=== PATIENT | male | born 1955 | race American Indian/Alaskan Native ===

== ENCOUNTER 2018-05-13 06:07 | Inpatient (IN) | payer BC ==
[2018-05-13 06:08] VITALS: BMI 34.7
--- NOTE | 2018-05-13 06:30 | ED PDOC ---
Arrival/HPI - General Chief Complaint: Lower Extremity Problem/Injury Time Seen by Provider: 05/13/18 06:09 Historian: Patient - History of Present Illness Narrative History of Present Illness (Text): 05/13/18 06:27 62 year old male, with history of recent knee replacement surgery and DVT in knee, presents for consult from [facility]. Patient is here for evaluatin by Dr. Santillan. Patient states hes been having fevers since the surgery, but denies any other complaints. Patient has not eaten since midnight and has drank apple juice and water this morning. Patient denies any headache, dizziness, chest pain, shortness of breath, dyspnea on exertion, cough, abdominal pain, nausea, vomiting, diarrhea, back pain, neck pain, or any other complaint.. 05/13/18 07:16 Time/Duration: Prior to Arrival Context: Home Past Medical History - Provider Review Nursing Documentation Reviewed: Yes - Infectious Disease Hx of Infectious Diseases: None - Cardiac Hx Cardiac Disorders: Yes Hx Angina: Yes - Pulmonary Hx Respiratory Disorders: Yes Hx Asthma: Yes Hx Chronic Obstructive Pulmonary Disease (COPD): Yes - Neurological Hx Neurological Disorder: Yes Hx Dizziness: Yes (sometimes ) - HEENT Hx HEENT Disorder: Yes (deviated septum repair) - Renal Hx Renal Disorder: No - Endocrine/Metabolic Hx Endocrine Disorders: No - Hematological/Oncological Hx Blood Disorders: Yes Hx Shingles: Yes - Integumentary Hx Dermatological Disorder: No - Musculoskeletal/Rheumatological Hx Degenerative Joint Disease: Yes Hx Falls: No Hx Osteoarthritis: Yes - Gastrointestinal Hx Gastrointestinal Disorders: No - Genitourinary/Gynecological Hx Urinary Tract Infection: Yes - Psychiatric Hx Psychophysiologic Disorder: No Hx Substance Use: No - Surgical History Hx Arthroscopy: Yes (left shoulder torn rotator cuff repair) Hx Joint Replacement: Yes Other/Comment: deviated septal repair - Anesthesia Hx Anesthesia: Yes Hx Anesthesia Reactions: No Hx Malignant Hyperthermia: No Family/Social History - Physician Review Nursing Documentation Reviewed: Yes Family/Social History: No Known Family HX Smoking Status: Never Smoked Hx Alcohol Use: No Hx Substance Use: No Allergies/Home Meds Allergies/Adverse Reactions: Allergies Penicillins Allergy (Intermediate, Verified 05/10/18 16:33) RASH shellfish derived Allergy (Intermediate, Verified 05/10/18 16:33) RASH shrimp Allergy (Intermediate, Verified 05/10/18 16:33) RASH Review of Systems - Physician Review All systems were reviewed & negative as marked: Yes - Review of Systems Constitutional: Fevers Respiratory: absent: SOB, Cough Cardiovascular: absent: Chest Pain Gastrointestinal: absent: Abdominal Pain, Diarrhea, Nausea, Vomiting Musculoskeletal: absent: Back Pain, Neck Pain Neurological: absent: Headache, Dizziness Physical Exam Vital Signs Reviewed: Yes Vital Signs Temp Pulse Resp BP Pulse Ox 05/13/18 06:20 98.1 F 88 18 122/73 99 Temperature: Afebrile Blood Pressure: Normal Pulse: Regular Respiratory Rate: Normal Appearance: Positive for: Well-Appearing, Non-Toxic, Comfortable Pain Distress: None Mental Status: Positive for: Alert and Oriented X 3 - Systems Exam Head: Present: Atraumatic, Normocephalic Pupils: Present: PERRL Extroacular Muscles: Present: EOMI Conjunctiva: Present: Normal Mouth: Present: Moist Mucous Membranes Neck: Present: Normal Range of Motion Respiratory/Chest: Present: Clear to Auscultation, Good Air Exchange. No: Respiratory Distress, Accessory Muscle Use Cardiovascular: Present: Regular Rate and Rhythm, Normal S1, S2. No: Murmurs Abdomen: No: Tenderness, Distention, Peritoneal Signs Back: Present: Normal Inspection Upper Extremity: Present: Normal Inspection. No: Cyanosis, Edema Lower Extremity: Present: Normal Inspection, Capillary Refill < 2 s, Other (LLE: w/roderick wrap which is C/D/I, in brace, DP/PT pulses 2+, moves toes freely, sensation intact, skin warm and dry). No: Edema Neurological: Present: GCS=15, CN II-XII Intact, Speech Normal Skin: Present: Warm, Dry, Normal Color. No: Rashes Psychiatric: Present: Alert, Oriented x 3, Normal Insight, Normal Concentration Medical Decision Making ED Course and Treatment: 05/13/18 CBC, CMP and T&S performed at [facility] at 3:30 am today. 06:43 Case d/w Dr. Santillan who requests T&S, left knee xray and patient to be transferred to [facility] for evaluation. - EKG Interpretation EKG Interpretation (Text): 05/13/18 07:39 EKG: Ordered, reviewed, and independently interpreted the EKG. Rate : 81 BPM Rhythm : NSR Interpretation : Normal [place] and QRS intervals, prolonged QRS, left axis deviation, Right Bundle branch block, non specific T-wave changes. Comparison : Unchanged for 05/16/2017 Interpreted by ED Physician: Yes - Scribe Statement The provider has reviewed the documentation as recorded by the Scribe Keron Mathias Provider Scribe Attestation: All medical record entries made by the Scribe were at my direction and personally dictated by me. I have reviewed the chart and agree that the record accurately reflects my personal performance of the history, physical exam, medical decision making, and the department course for this patient. I have also personally directed, reviewed, and agree with the discharge instructions and disposition. Disposition/Present on Arrival - Present on Arrival Any Indicators Present on Arrival: Yes History of DVT/PE: Yes History of Uncontrolled Diabetes: No Urinary Catheter: No History of Decub. Ulcer: No History Surgical Site Infection Following: None - Disposition Have Diagnosis and Disposition been Completed?: Yes Diagnosis: Status post left knee replacement Disposition: HOSPITALIZED Disposition Time: 06:50 Patient Plan: Admission Patient Problems: Current Active Problems Problem Status Onset Status post left knee replacement Acute Condition: STABLE
[2018-05-13] MEDS ORDERED: Bupivacaine Liposomal Inj 20 ml ONE (07:48)
[2018-05-13] MEDS ORDERED: Vancomycin 1 g Inj ONE ×2 (07:48→07:49)
[2018-05-13] MEDS ORDERED: Sodium Chloride 0.9% 0 ML IV ONE (07:48)
[2018-05-13] MEDS ORDERED: Propofol 10 mg/ml Inj (20 ML) ONE (08:05)
[2018-05-13] MEDS ORDERED: Succinylcholine 200 mg/10 ml Inj IV ONE (08:05)
[2018-05-13] MEDS ORDERED: Aztreonam 1 Gm in NS 100mL 100 ML IVPB STA (08:27)
[2018-05-13 09:06] LABS: FLUID TYPE SYNOVIAL FLUID
[2018-05-13] MEDS ORDERED: Albuterol-Ipratrop 3 mg / 0.5 (3 ml) UD INH PRN (09:50)
--- NOTE | 2018-05-13 09:50 | PCM.SURG1 ---
Surgeon's Initial Post Op Note - Surgeon's Notes Surgeon: Mercedes Jaquez MD Drilling Machine Operator: Lawrecne Leon PA-C Type of Anesthesia: General Endo Anesthesia Administered By: Dr. Lemus Pre-Operative Diagnosis: left knee hematoma s/p L TKA Operative Findings: see full note Post-Operative Diagnosis: same Operation Performed: I&D left knee hematoma s/p L TKA Specimen/Specimens Removed: left knee fluid Estimated Blood Loss: EBL {In ML}: 25 Blood Products Given: N/A Drains Used: Wound Vac Post-Op Condition: Fair Date of Surgery/Procedure: 05/13/18 Time of Surgery/Procedure: 09:49
[2018-05-13] MEDS ORDERED: Magnesium Hydroxide Susp 30 ml UD PO PRN (09:51)
[2018-05-13] MEDS ORDERED: HYDROmorphone 0.5 mg/0.5 ml ISec IM STA (09:55)
[2018-05-13] MEDS ORDERED: HYDROmorphone 0.5 mg/0.5 ml ISec IVP ONE (09:55)
[2018-05-13] MEDS ORDERED: HYDROmorphone 0.5 mg/0.5 ml ISec ONE (09:56)
[2018-05-13] MEDS ORDERED: Sodium Chloride 0.9% 1,000 ML IV SCH (10:00)
[2018-05-13] MEDS ORDERED: Non Formulary Medication (Fluticasone/Vilanterol 100/25 [Breo Ellipta 100-25 Mcg Inh] 1 PU INH SCH (10:00)
[2018-05-13 10:02] LABS: SF GROSS APPEARANCE BLOODY (CLEAR); SYNOVIAL FLUID COMMENT RED
[2018-05-13] MEDS ORDERED: Lactated Ringer's 1,000 ML IV SCH (10:30)
[2018-05-13] MEDS ORDERED: Vancomycin 500 mg Inj IVPB SCH (11:00)
--- NOTE | 2018-05-13 11:46 | RAD ---
Date of service: 05/13/2018 PROCEDURE: Left Knee Radiographs. HISTORY: Postoperative pain. COMPARISON: None. FINDINGS: BONES: Satisfactory postoperative appearance of tibial and distal femoral components of the left TKA. JOINTS: Normal. No osteoarthritis. JOINT EFFUSION: None. OTHER FINDINGS: Surgical drain identified in the soft tissues. IMPRESSION: Satisfactory postoperative status.
[2018-05-13] MEDS: Aztreonam 1 Gm in NS 100mL 100 ML IVPB SCH ×2 (13:35→21:10)
[2018-05-13] MEDS: Multivitamin With Minerals Tab PO SCH (13:37)
[2018-05-13] MEDS: Ergocalciferol 50,000 Intl Units Cap PO SCH (13:37)
[2018-05-13] MEDS: Pantoprazole 40 mg EC Tab PO SCH (13:38)
--- NOTE | 2018-05-13 15:03 | CP.PCM.HP ---
<Manuel Redding - Last Filed: 05/13/18 15:22> History of Present Illness - History of Present Illness History of Present Illness: H&P for Hospitalist service 62 M with past medical history of rheumatic fever, CAD, asthma presenting s/p left knee replacement complicated by left leg DVT and hematoma of left knee [place] [facility] [place] of hematoma and management of DVT on eliquis. Patient denies pain, fevers, chills, nausea, vomiting, diarrhea, chest pain, shortness of breath, headache. PMD: Dr. Low Surgical Hx: Left knee arthroplasty Family Hx: DVT in sister, and paternal aunt Social Hx: Denies tobacco, alcohol , drug use Allergies: Penicillin (rash), shellfish Present on Admission - Present on Admission Any Indicators Present on Admission: No Review of Systems - Constitutional Constitutional: absent: Chills, Headache - EENT Eyes: absent: Change in Vision - Cardiovascular Cardiovascular: absent: Chest Pain, Dyspnea - Respiratory Respiratory: absent: Cough - Gastrointestinal Gastrointestinal: absent: Diarrhea, Nausea, Vomiting - Genitourinary Genitourinary: absent: Dysuria - Musculoskeletal Musculoskeletal: absent: Joint Swelling, Muscle Cramps, Muscle Weakness, Numbness, Stiffness, Tingling - Integumentary Integumentary: absent: Dry Skin, Skin Pain - Neurological Neurological: absent: Dizziness, Numbness - Psychiatric Psychiatric: absent: Anxiety - Endocrine Endocrine: absent: Fatigue - Hematologic/Lymphatic Hematologic: absent: Easy Bleeding, Easy Bruising Past Patient History - Infectious Disease Hx of Infectious Diseases: None - Past Medical History & Family History Past Medical History?: Yes - Past Social History Smoking Status: Never Smoked - CARDIAC Hx Cardiac Disorders: Yes Hx Angina: Yes - PULMONARY Hx Asthma: Yes Hx Chronic Obstructive Pulmonary Disease (COPD): Yes - NEUROLOGICAL Hx Neurological Disorder: Yes Hx Dizziness: Yes (sometimes ) - HEENT Hx HEENT Problems: Yes (deviated septum repair) - RENAL Hx Chronic Kidney Disease: No - ENDOCRINE/METABOLIC Hx Endocrine Disorders: No - HEMATOLOGICAL/ONCOLOGICAL Hx Blood Disorders: Yes Hx Shingles: Yes - INTEGUMENTARY Hx Dermatological Problems: No - MUSCULOSKELETAL/RHEUMATOLOGICAL Hx Falls: No - GASTROINTESTINAL Hx Gastrointestinal Disorders: No - GENITOURINARY/GYNECOLOGICAL Hx Urinary Tract Infection: Yes - PSYCHIATRIC Hx Psychophysiologic Disorder: No Hx Substance Use: No - SURGICAL HISTORY Hx Surgeries: Yes Hx Orthopedic Surgery: Yes - ANESTHESIA Hx Anesthesia: Yes Hx Anesthesia Reactions: No Hx Malignant Hyperthermia: No Meds Allergies/Adverse Reactions: Allergies Allergy/AdvReac Type Severity Reaction Status Date / Time Penicillins Allergy Intermediate RASH Verified 05/10/18 16:33 shellfish derived Allergy Intermediate RASH Verified 05/10/18 16:33 shrimp Allergy Intermediate RASH Verified 05/10/18 16:33 Physical Exam - Constitutional Appears: Non-toxic - Head Exam Head Exam: ATRAUMATIC, NORMAL INSPECTION, NORMOCEPHALIC - Eye Exam Eye Exam: EOMI, Normal appearance - ENT Exam ENT Exam: Mucous Membranes Moist, Normal Exam - Neck Exam Neck exam: Positive for: Normal Inspection - Respiratory Exam Respiratory Exam: Clear to Auscultation Bilateral, NORMAL BREATHING PATTERN. absent: Rhonchi, Wheezes - Cardiovascular Exam Cardiovascular Exam: REGULAR RHYTHM, +S1, +S2 - GI/Abdominal Exam GI & Abdominal Exam: Normal Bowel Sounds, Soft - Extremities Exam Extremities exam: Positive for: normal inspection - Expanded Lower Extremities Exam Left Lower Leg Exam: absent: full ROM (left lower leg immobilizer placed, would roderick bandage wrap and stabilized) - Back Exam Back exam: NORMAL INSPECTION - Neurological Exam Neurological exam: Alert, CN II-XII Intact, Oriented x3 - Psychiatric Exam Psychiatric exam: Normal Affect, Normal Mood - Skin Skin Exam: Normal Color, Warm Results - Vital Signs Recent Vital Signs: Last Vital Signs Temp 98.1 F 05/13/18 14:00 Pulse 96 H 05/13/18 14:00 Resp 20 05/13/18 14:00 BP 112/79 05/13/18 14:00 Pulse Ox 96 05/13/18 14:00 - Labs Labs: Laboratory Results - last 24 hr 05/13/18 05/13/18 06:50 09:00 Fluid Type Synovial fluid Synovial WBC 6105.0 H Synovial RBC 2792020.0 H Synovial Mononuclear 6.0 H Synov Polymorphonuclear 94.0 H Synovial Fluid Comment Red Blood Type B POSITIVE Antibody Screen Negative BBK History Checked Patient has bt Assessment & Plan - Assessment and Plan (Free Text) Assessment: 62 M with past medical history of rheumatic fever, CAD, asthma presenting s/p left knee replacement complicated by left leg DVT and hematoma of left knee presenting [place] [facility] [place] of hematoma and management of DVT on eliquis. Plan: S/P I&D Left Knee S/P left knee athroplasty -Continue with Aztreonam and Vanc -Dilaudid, oxycodone, lyrica, tylenol for pain -F/U anaerobic culture, body fluid culture, culture fungus, mycobac -PT/OT -Continue with incesitve spirometry Asthma Hx -Continue with duonebs, breo-ellipta, ventolin, singulair Left leg DVT -Eliquis 10 mg BID for 3 more days then 5 mg BID -Hypercoaguable workup: Beta 2 glycoprotein, Phosphatidylserine, Factor V leiden and Anticardiolipin done at other facility; Will also add PT,PTT, protein C and S, antithrombin III, prothombrin, Factor VIII, homocysteine DVT/GI ppx: Eliquis/Protonix <Freddie Evans - Last Filed: 05/13/18 16:35> Results - Vital Signs Recent Vital Signs: Last Vital Signs Temp 98.1 F 05/13/18 14:00 Pulse 96 H 05/13/18 14:00 Resp 20 05/13/18 14:00 BP 112/79 05/13/18 14:00 Pulse Ox 96 05/13/18 14:00 - Labs Labs: Laboratory Results - last 24 hr 05/13/18 05/13/18 06:50 09:00 Fluid Type Synovial fluid Synovial WBC 6105.0 H Synovial RBC 6743999.0 H Synovial Mononuclear 6.0 H Synov Polymorphonuclear 94.0 H Synovial Fluid Comment Red Blood Type B POSITIVE Antibody Screen Negative BBK History Checked Patient has bt Attending/Attestation - Attestation I have personally seen and examined this patient.: Yes I have fully participated in the care of the patient.: Yes I have reviewed all pertinent clinical information: Yes Notes (Text): Patient seen and examined with the residents, agree with above DVT of the LLE, most likely provoked secondary to ortho surgery Has a h/o of "blood clots" in his family - will send for hypercoagulable workup continue with OAC with Eliquis, PT/OT
--- NOTE | 2018-05-13 16:18 | OP ---
PROCEDURE DATE: 05/13/2018 PREOPERATIVE DIAGNOSIS: Left knee hemarthrosis, status post left total knee arthroplasty. POSTOPERATIVE DIAGNOSIS: Left knee hemarthrosis, status post left total knee arthroplasty. PROCEDURE: Left knee evacuation of hematoma and irrigation and debridement. SURGEON: Cyril Jaquez MD. AUTOMATIC GLOVE TURNER AND FORMER: Dr. Jaquez was assisted by Nadia Reddy, physician assistant banquet manager and Jimmy Alejandre, physician assistant banquet manager. Both physician assistants were scrubbed and present throughout the entire case and assisted in manipulating the extremity, retraction and wound closure. ANESTHESIA: General. COMPLICATIONS: None. ESTIMATED BLOOD LOSS: 25 mL. Hematoma removed was approximately 200 mL. COMPLICATIONS: None. INDICATION FOR PROCEDURE: This is a 62-year-old gentleman who approximately 9 days ago underwent a left total knee replacement. Postoperatively, patient developed a deep venous thrombosis and was on therapeutic doses of anticoagulation. Patient subsequently developed a hematoma as well as with difficulty with flexion. Recommendations were for evacuation of the hematoma and irrigation and debridement. The risks, benefits, and alternatives of the procedure were discussed with the patient including the possibility of deep infection and informed consent was obtained. DESCRIPTION OF PROCEDURE: After surgical site was signed and verified in the perioperative holding area, the patient was taken to the operating room and placed supine on the operating room table. After administration of general anesthesia, tourniquet was placed about the left thigh. Care was taken to make sure that all bony prominences and nerves were well padded and protected. Venodyne boot was placed on the nonoperative extremity and the left lower upper extremity was prepped and draped in the usual sterile fashion. At this point, using an 18-gauge needle and 20 mL syringe, the left knee was aspirated and approximately 8 mL of dark blood was aspirated consistent with a hematoma. At this point, the proximal portion of the incision was re-incised and immediately approximately 175 to 200 mL of dark red blood was evacuated. There was no gross purulence. Cultures were taken as well as fluids sent off for cell count. The wound was inspected and tissue all appeared to be healthy and viable. There was no gross purulence appreciated whatsoever. The deep sutures appeared to be intact. The wound was then copiously irrigated intraarticularly through the retinacular incision from the lateral release and the knee joint was flush lavaged with approximately 9 L of antibiotic saline solution. At this point, once the wound had been irrigated, gloves changed and a new drape was placed and 1 g of vancomycin powder was inserted into the wound and the wound was closed using 0 Vicryl, 2-0 Vicryl suture and 3-0 nylon. A RANJITH incisional wound VAC dressing was applied and a Dailey dressing was placed. The patient was awakened from the procedure and taken to the recovery room in stable condition. Cyril Jaquez MD
[2018-05-13] MEDS ORDERED: Aztreonam 1 Gm in NS 100mL 100 ML IVPB SCH (17:00)
[2018-05-13] MEDS: HYDROmorphone 1 mg/ml ISec IVP PRN (18:40)
[2018-05-13] MEDS: Albuterol-Ipratrop 3 mg / 0.5 (3 ml) UD INH SCH ×2 (18:53→19:01)
--- NOTE | 2018-05-13 19:03 | CARD ---
APPROVED REPORT Date of service: 05/13/2018 EKG Measurement Heart [id number] <Conclusion> Normal sinus rhythm Right bundle branch block Abnormal ECG
[2018-05-14] MEDS: Albuterol-Ipratrop 3 mg / 0.5 (3 ml) UD INH SCH ×4 (02:30→19:36)
[2018-05-14] MEDS: oxyCODONE 10 mg Immediate Release Tab PO PRN ×2 (03:40→20:03)
[2018-05-14 06:51] LABS: BASO # 0.07 K/mm3 (0.0-2.0); BASO % 0.6 % (0.0-3.0); EOS # 0.4 (0.0-0.7); EOS % 3.3 % (1.5-5.0); GRAN # 8.44 (1.4-6.5); HEMOGLOBIN 9.1 g/dL (14.0-18.0); LYMPH # 2.6 (1.2-3.4); LYMPH % 20.9 % (22.0-35.0); MEAN CORPUSCULAR HEMOGLOBIN 26.8 pg (25.0-35.0); MEAN CORPUSCULAR HGB CONC 31.5 g/dl (31.0-37.0); MEAN PLATELET VOLUME 8.8 fl (7.0-11.0); MONO % 8.2 % (1.0-6.0); RBC 3.4 10^6/uL (3.5-6.1); RED CELL DISTRIBUTION WIDTH 13.5 % (11.5-14.5); WHITE BLOOD COUNT 12.6 10^3/uL (4.5-11.0)
[2018-05-14 07:04] LABS: ALB/GLOB RATIO 0.9 (1.1-1.8); ALBUMIN 3.3 g/dL (3.0-4.8); ALT/SGPT 90 U/L (7-56); AST/SGOT 74 U/L (17-59); BLOOD UREA NITROGEN 16 mg/dL (7-21); CALCIUM 8.3 mg/dL (8.4-10.5); GFR NON-AFRICAN AMERICAN > 60
[2018-05-14] MEDS: HYDROmorphone 1 mg/ml ISec IVP PRN ×2 (09:43)
[2018-05-14] MEDS: Multivitamin With Minerals Tab PO SCH (09:44)
[2018-05-14] MEDS: Pantoprazole 40 mg EC Tab PO SCH (09:44)
--- NOTE | 2018-05-14 11:19 | CP.PCM.PN ---
<Manuel Redding - Last Filed: 05/14/18 11:20> Subjective - Date & Time of Evaluation Date of Evaluation: 05/14/18 Time of Evaluation: 08:30 - Subjective Subjective: Patient seen and examined at bedside in no acute distress. Patient states he is in no pain, is aware of low grade fever overnight but has not felt febrile or had chills. Appetite is strong. Patient aware with current plan as per ortho and medical teams. Denies chest pain, lower extremity pain, fevers, chills, nausea, vomiting, diarrhea, headache, cough. Physical Exam - Constitutional Appears: Non-toxic - Head Exam Head Exam: ATRAUMATIC, NORMAL INSPECTION, NORMOCEPHALIC - Eye Exam Eye Exam: EOMI, Normal appearance - ENT Exam ENT Exam: Mucous Membranes Moist, Normal Exam - Neck Exam Neck exam: Positive for: Normal Inspection - Respiratory Exam Respiratory Exam: Clear to Auscultation Bilateral, NORMAL BREATHING PATTERN. absent: Rhonchi, Wheezes - Cardiovascular Exam Cardiovascular Exam: REGULAR RHYTHM, +S1, +S2 - GI/Abdominal Exam GI & Abdominal Exam: Normal Bowel Sounds, Soft - Extremities Exam Extremities exam: Positive for: normal inspection - Expanded Lower Extremities Exam Left Lower Leg Exam: absent: full ROM (left lower leg immobilizer placed, would roderick bandage wrap and stabilized) - Back Exam Back exam: NORMAL INSPECTION - Neurological Exam Neurological exam: Alert, CN II-XII Intact, Oriented x3 - Psychiatric Exam Psychiatric exam: Normal Affect, Normal Mood - Skin Skin Exam: Normal Color, Warm Objective - Vital Signs/Intake and Output Vital Signs (last 24 hours): Temp Pulse Resp BP Pulse Ox 98.6 F 84 20 110/71 98 05/14/18 07:00 05/14/18 07:00 05/14/18 07:00 05/14/18 07:00 05/14/18 07:00 Intake and Output: 05/14/18 05/14/18 06:59 18:59 Output Total 525 Balance -525 - Medications Medications: Current Medications Acetaminophen (Tylenol 325mg Tab) 650 mg PO Q6 PRN PRN Reason: Fever =>101 degrees fahrenheit Last Admin: 05/13/18 21:23 Dose: 650 mg Albuterol/Ipratropium (Duoneb 3 Mg/0.5 Mg (3 Ml) Ud) 3 ml INH [id number] [facility] Last Admin: 05/14/18 02:30 Dose: Not Given Apixaban (Eliquis) 10 mg PO BID [facility]; Protocol Stop: 05/20/18 10:01 Last Admin: 05/14/18 09:44 Dose: 10 mg Docusate Sodium (Colace) 100 mg PO BID [facility] Last Admin: 05/14/18 09:44 Dose: 100 mg Ergocalciferol (Drisdol 50,000 Intl Units Cap) 1 cap PO QWK [facility] Last Admin: 05/13/18 13:37 Dose: 1 cap Hydromorphone HCl (Dilaudid) 1 mg IVP Q4H PRN PRN Reason: Pain, severe (8-10) Last Admin: 05/14/18 09:43 Dose: 1 mg Vancomycin HCl 1.25 gm/ Sodium (Chloride) 250 mls @ 166.667 mls/hr IVPB Q12H [facility] Last Admin: 05/14/18 09:50 Dose: 166.667 mls/hr Lactated Ringer's (Lactated Ringer's) 1,000 mls @ 100 mls/hr IV .Q10H [facility] Aztreonam (Azactam 1 Gm) 100 mls @ 100 mls/hr IVPB Q8 [facility]; Protocol Stop: 05/14/18 14:59 Magnesium Hydroxide (Milk Of Magnesia) 30 ml PO HS PRN PRN Reason: Constipation Montelukast Sodium (Singulair) 10 mg PO DAILY [facility] Last Admin: 05/14/18 09:44 Dose: 10 mg Multivitamins/Minerals (Therapeutic-M Tab) 1 tab PO DAILY [facility] Last Admin: 05/14/18 09:44 Dose: 1 tab Non-Formulary Medication (Fluticasone/Vilanterol 100/25 [Breo Ellipta 100-25 Mcg Inh]) 1 puff INH DAILY [facility] Oxycodone HCl (Oxycodone Immediate Release Tab) 10 mg PO Q4H PRN PRN Reason: Pain, moderate (4-7) Last Admin: 05/14/18 03:40 Dose: 10 mg Pantoprazole Sodium (Protonix Ec Tab) 40 mg PO DAILY [facility] Last Admin: 05/14/18 09:44 Dose: 40 mg Pregabalin (Lyrica) 50 mg PO BID [facility] Last Admin: 05/14/18 09:44 Dose: 50 mg Sennosides (Senokot Tab) 17.2 mg PO HS PRN PRN Reason: Constipation - Labs Labs: 05/14/18 06:00 05/14/18 06:00 Assessment and Plan - Assessment and Plan (Free Text) Assessment: 62 M with past medical history of rheumatic fever, CAD, asthma presenting s/p left knee replacement complicated by left leg DVT and hematoma of left knee [place] [facility] [place] and management of DVT on eliquis. Plan: S/P I&D Left Knee S/P left knee athroplasty -Continue with Vancomycin -Dilaudid, oxycodone, lyrica, tylenol for pain -F/U anaerobic culture, body fluid culture, culture fungus, mycobac; results pending -PT/OT -Continue with incesitve spirometry -Patient spiked temp 100.6 overnight, but likely due to recent procedure. Will monitor. Asthma Hx -Continue with duonebs, breo-ellipta, ventolin, singulair Left leg DVT -Eliquis 10 mg BID for 2 more days then 5 mg BID -Hypercoaguable workup: Beta 2 glycoprotein, Phosphatidylserine, Factor V leiden and Anticardiolipin done at other facility; Will also add PT,PTT, protein C and S, antithrombin III, prothombrin, Factor VIII, homocysteine ordered; results pending DVT/GI ppx: Eliquis/Protonix <Checo Thomas - Last Filed: 05/14/18 15:28> Objective - Vital Signs/Intake and Output Vital Signs (last 24 hours): Temp Pulse Resp BP Pulse Ox 98.6 F 84 20 110/71 98 05/14/18 07:00 05/14/18 07:00 05/14/18 07:00 05/14/18 07:00 05/14/18 07:00 Intake and Output: 05/14/18 05/14/18 06:59 18:59 Output Total 525 Balance -525 - Medications Medications: Current Medications Acetaminophen (Tylenol 325mg Tab) 650 mg PO Q6 PRN PRN Reason: Fever =>101 degrees fahrenheit Last Admin: 05/13/18 21:23 Dose: 650 mg Albuterol/Ipratropium (Duoneb 3 Mg/0.5 Mg (3 Ml) Ud) 3 ml INH [id number] [facility] Last Admin: 05/14/18 13:47 Dose: Not Given Apixaban (Eliquis) 10 mg PO BID [facility]; Protocol Stop: 05/20/18 10:01 Last Admin: 05/14/18 09:44 Dose: 10 mg Docusate Sodium (Colace) 100 mg PO BID [facility] Last Admin: 05/14/18 09:44 Dose: 100 mg Ergocalciferol (Drisdol 50,000 Intl Units Cap) 1 cap PO QWK [facility] Last Admin: 05/13/18 13:37 Dose: 1 cap Hydromorphone HCl (Dilaudid) 1 mg IVP Q4H PRN PRN Reason: Pain, severe (8-10) Last Admin: 05/14/18 09:43 Dose: 1 mg Vancomycin HCl 1.25 gm/ Sodium (Chloride) 250 mls @ 166.667 mls/hr IVPB Q12H [facility] Last Admin: 05/14/18 09:50 Dose: 166.667 mls/hr Lactated Ringer's (Lactated Ringer's) 1,000 mls @ 100 mls/hr IV .Q10H [facility] Magnesium Hydroxide (Milk Of Magnesia) 30 ml PO HS PRN PRN Reason: Constipation Montelukast Sodium (Singulair) 10 mg PO DAILY [facility] Last Admin: 05/14/18 09:44 Dose: 10 mg Multivitamins/Minerals (Therapeutic-M Tab) 1 tab PO DAILY [facility] Last Admin: 05/14/18 09:44 Dose: 1 tab Non-Formulary Medication (Fluticasone/Vilanterol 100/25 [Breo Ellipta 100-25 Mcg Inh]) 1 puff INH DAILY [facility] Oxycodone HCl (Oxycodone Immediate Release Tab) 10 mg PO Q4H PRN PRN Reason: Pain, moderate (4-7) Last Admin: 05/14/18 03:40 Dose: 10 mg Pantoprazole Sodium (Protonix Ec Tab) 40 mg PO DAILY [facility] Last Admin: 05/14/18 09:44 Dose: 40 mg Pregabalin (Lyrica) 50 mg PO BID [facility] Last Admin: 05/14/18 09:44 Dose: 50 mg Sennosides (Senokot Tab) 17.2 mg PO HS PRN PRN Reason: Constipation - Labs Labs: 05/14/18 06:00 05/14/18 06:00 Attending/Attestation - Attestation I have personally seen and examined this patient.: Yes I have fully participated in the care of the patient.: Yes I have reviewed all pertinent clinical information, including history, physical exam and plan: Yes Notes (Text): 05/14/18 15:24 Medical record note made by the resident after discussion with my direction and input after the patient was personally seen and examined by me. I have reviewed the chart and agree that the record accurately reflects by personal performance of the history, physical exam, data review, and medical decision-making, in the course for the patient. I have also personally directed the plan of care. 62 M with past medical history of rheumatic fever, CAD, asthma presenting s/p left knee replacement complicated by left leg DVT(Left Popliteal and Peroneal Vein) and hematoma of left knee [place] [facility] [place].Patient is SP ID of hematoma , wound cultures are negative.Patient had low grade fever last night but afebrile today. Low grade fever could be post operative.We will follow up cultures. Management plan was discussed in detail with patient. Education was provided. 05/14/18 15:28
[2018-05-14] MEDS: Aztreonam 1 Gm in NS 100mL 100 ML IVPB SCH ×2 (11:52→15:33)
--- NOTE | 2018-05-14 13:31 | CP.PCM.PN ---
Subjective - Date & Time of Evaluation Date of Evaluation: 05/14/18 Time of Evaluation: 13:32 - Subjective Subjective: Pt awake, alert. Denies any significant pain. Tmax 100.6 (last night) afebrile now LLE: dressing and knee immobilizer in place RANJITH dressing working NVI distally WBC 12.6 s/p evacuation of hematoma/i&d cont antibiotics cont therapeutic Eliquis will resume PT in AM Objective - Vital Signs/Intake and Output Vital Signs (last 24 hours): Temp Pulse Resp BP Pulse Ox 98.6 F 84 20 110/71 98 05/14/18 07:00 05/14/18 07:00 05/14/18 07:00 05/14/18 07:00 05/14/18 07:00 Intake and Output: 05/14/18 05/14/18 06:59 18:59 Output Total 525 Balance -525 - Medications Medications: Current Medications Acetaminophen (Tylenol 325mg Tab) 650 mg PO Q6 PRN PRN Reason: Fever =>101 degrees fahrenheit Last Admin: 05/13/18 21:23 Dose: 650 mg Albuterol/Ipratropium (Duoneb 3 Mg/0.5 Mg (3 Ml) Ud) 3 ml INH [id number] [facility] Last Admin: 05/14/18 02:30 Dose: Not Given Apixaban (Eliquis) 10 mg PO BID [facility]; Protocol Stop: 05/20/18 10:01 Last Admin: 05/14/18 09:44 Dose: 10 mg Docusate Sodium (Colace) 100 mg PO BID [facility] Last Admin: 05/14/18 09:44 Dose: 100 mg Ergocalciferol (Drisdol 50,000 Intl Units Cap) 1 cap PO QWK [facility] Last Admin: 05/13/18 13:37 Dose: 1 cap Hydromorphone HCl (Dilaudid) 1 mg IVP Q4H PRN PRN Reason: Pain, severe (8-10) Last Admin: 05/14/18 09:43 Dose: 1 mg Vancomycin HCl 1.25 gm/ Sodium (Chloride) 250 mls @ 166.667 mls/hr IVPB Q12H [facility] Last Admin: 05/14/18 09:50 Dose: 166.667 mls/hr Lactated Ringer's (Lactated Ringer's) 1,000 mls @ 100 mls/hr IV .Q10H [facility] Aztreonam (Azactam 1 Gm) 100 mls @ 100 mls/hr IVPB Q8 [facility]; Protocol Stop: 05/14/18 14:59 Last Admin: 05/14/18 11:52 Dose: 100 mls/hr Magnesium Hydroxide (Milk Of Magnesia) 30 ml PO HS PRN PRN Reason: Constipation Montelukast Sodium (Singulair) 10 mg PO DAILY [facility] Last Admin: 05/14/18 09:44 Dose: 10 mg Multivitamins/Minerals (Therapeutic-M Tab) 1 tab PO DAILY [facility] Last Admin: 05/14/18 09:44 Dose: 1 tab Non-Formulary Medication (Fluticasone/Vilanterol 100/25 [Breo Ellipta 100-25 Mcg Inh]) 1 puff INH DAILY [facility] Oxycodone HCl (Oxycodone Immediate Release Tab) 10 mg PO Q4H PRN PRN Reason: Pain, moderate (4-7) Last Admin: 05/14/18 03:40 Dose: 10 mg Pantoprazole Sodium (Protonix Ec Tab) 40 mg PO DAILY [facility] Last Admin: 05/14/18 09:44 Dose: 40 mg Pregabalin (Lyrica) 50 mg PO BID [facility] Last Admin: 05/14/18 09:44 Dose: 50 mg Sennosides (Senokot Tab) 17.2 mg PO HS PRN PRN Reason: Constipation - Labs Labs: 05/14/18 06:00 05/14/18 06:00
[2018-05-14] MEDS: Non Formulary Medication (Fluticasone/Vilanterol 100/25 [Breo Ellipta 100-25 Mcg Inh] 1 PU INH SCH (15:34)
[2018-05-15] MEDS: Albuterol-Ipratrop 3 mg / 0.5 (3 ml) UD INH SCH ×4 (01:06→19:35)
[2018-05-15] MEDS: oxyCODONE 10 mg Immediate Release Tab PO PRN ×2 (02:07→18:17)
[2018-05-15 08:51] LABS: BASO # 0.07 K/mm3 (0.0-2.0); BASO % 0.6 % (0.0-3.0); EOS # 0.6 (0.0-0.7); EOS % 4.5 % (1.5-5.0); GRAN # 8.34 (1.4-6.5); GRAN % 67.1 % (50.0-68.0); HEMOGLOBIN 9.2 g/dL (14.0-18.0); LYMPH # 2.6 (1.2-3.4); LYMPH % 20.5 % (22.0-35.0); MEAN CELL VOLUME 84.6 fl (80.0-105.0); MEAN CORPUSCULAR HEMOGLOBIN 26.7 pg (25.0-35.0); MEAN CORPUSCULAR HGB CONC 31.5 g/dl (31.0-37.0); MEAN PLATELET VOLUME 8.8 fl (7.0-11.0); MONO # 0.9 (0.1-0.6); MONO % 7.3 % (1.0-6.0); RBC 3.45 10^6/uL (3.5-6.1); RED CELL DISTRIBUTION WIDTH 13.5 % (11.5-14.5); WHITE BLOOD COUNT 12.4 10^3/uL (4.5-11.0)
[2018-05-15 08:59] LABS: ALB/GLOB RATIO 0.8 (1.1-1.8); ALBUMIN 3.2 g/dL (3.0-4.8); ALT/SGPT 81 U/L (7-56); AST/SGOT 72 U/L (17-59); BLOOD UREA NITROGEN 14 mg/dL (7-21); CALCIUM 8.5 mg/dL (8.4-10.5); GFR NON-AFRICAN AMERICAN > 60
[2018-05-15] MEDS: Multivitamin With Minerals Tab PO SCH (10:03)
[2018-05-15] MEDS: Pantoprazole 40 mg EC Tab PO SCH (10:03)
[2018-05-15] MEDS: Non Formulary Medication (Fluticasone/Vilanterol 100/25 [Breo Ellipta 100-25 Mcg Inh] 1 PU INH SCH (10:04)
--- NOTE | 2018-05-15 11:08 | CP.PCM.PN ---
<Manuel Redding - Last Filed: 05/15/18 11:10> Subjective - Date & Time of Evaluation Date of Evaluation: 05/15/18 Time of Evaluation: 07:00 - Subjective Subjective: Patient seen and examined at bedside in no acute distress. States he has bouts of pain in his left knee which come and go but overall feels well. Denies fever, chill, chest pain, abdominal pain, cough, headache, nausea, vomiting, diarrhea, shortness of breath. Objective - Vital Signs/Intake and Output Vital Signs (last 24 hours): Temp Pulse Resp BP Pulse Ox 98.5 F 90 20 103/72 99 05/15/18 07:00 05/15/18 07:00 05/15/18 07:00 05/15/18 07:00 05/15/18 07:00 Intake and Output: 05/15/18 05/15/18 06:59 18:59 Intake Total 620 Output Total 650 Balance -30 - Medications Medications: Current Medications Acetaminophen (Tylenol 325mg Tab) 650 mg PO Q6 PRN PRN Reason: Fever =>101 degrees fahrenheit Last Admin: 05/13/18 21:23 Dose: 650 mg Albuterol/Ipratropium (Duoneb 3 Mg/0.5 Mg (3 Ml) Ud) 3 ml INH [id number] [facility] Last Admin: 05/15/18 07:45 Dose: Not Given Apixaban (Eliquis) 10 mg PO BID [facility]; Protocol Stop: 05/20/18 10:01 Last Admin: 05/15/18 10:03 Dose: 10 mg Docusate Sodium (Colace) 100 mg PO BID [facility] Last Admin: 05/15/18 10:03 Dose: 100 mg Ergocalciferol (Drisdol 50,000 Intl Units Cap) 1 cap PO QWK [facility] Last Admin: 05/13/18 13:37 Dose: 1 cap Hydromorphone HCl (Dilaudid) 1 mg IVP Q4H PRN PRN Reason: Pain, severe (8-10) Last Admin: 05/14/18 09:43 Dose: 1 mg Vancomycin HCl 1.5 gm/ Sodium (Chloride) 500 mls @ 167 mls/hr IVPB Q12H [facility]; Protocol Magnesium Hydroxide (Milk Of Magnesia) 30 ml PO HS PRN PRN Reason: Constipation Montelukast Sodium (Singulair) 10 mg PO DAILY [facility] Last Admin: 05/15/18 10:03 Dose: 10 mg Multivitamins/Minerals (Therapeutic-M Tab) 1 tab PO DAILY [facility] Last Admin: 05/15/18 10:03 Dose: 1 tab Non-Formulary Medication (Fluticasone/Vilanterol 100/25 [Breo Ellipta 100-25 Mcg Inh]) 1 puff INH DAILY [facility] Last Admin: 05/15/18 10:04 Dose: Not Given Oxycodone HCl (Oxycodone Immediate Release Tab) 10 mg PO Q4H PRN PRN Reason: Pain, moderate (4-7) Last Admin: 05/15/18 02:07 Dose: 10 mg Pantoprazole Sodium (Protonix Ec Tab) 40 mg PO DAILY [facility] Last Admin: 05/15/18 10:03 Dose: 40 mg Pregabalin (Lyrica) 50 mg PO BID [facility] Last Admin: 05/15/18 10:03 Dose: 50 mg Sennosides (Senokot Tab) 17.2 mg PO HS PRN PRN Reason: Constipation - Labs Labs: 05/15/18 08:30 05/15/18 08:30 - Constitutional Appears: Non-toxic, No Acute Distress - Head Exam Head Exam: ATRAUMATIC, NORMAL INSPECTION, NORMOCEPHALIC - Eye Exam Eye Exam: EOMI, Normal appearance - ENT Exam ENT Exam: Mucous Membranes Moist - Neck Exam Neck Exam: Normal Inspection - Respiratory Exam Respiratory Exam: Clear to Ausculation Bilateral, NORMAL BREATHING PATTERN. absent: Rhonchi, Wheezes - Cardiovascular Exam Cardiovascular Exam: REGULAR RHYTHM, +S1, +S2 - GI/Abdominal Exam GI & Abdominal Exam: Soft, Normal Bowel Sounds - Extremities Exam Extremities Exam: Normal Inspection - Back Exam Back Exam: NORMAL INSPECTION - Neurological Exam Neurological Exam: Alert, Awake, Oriented x3 - Psychiatric Exam Psychiatric exam: Normal Affect, Normal Mood - Skin Skin Exam: Normal Color, Warm Additional comments: immobilizer in place Assessment and Plan - Assessment and Plan (Free Text) Assessment: 62 M with past medical history of rheumatic fever, CAD, asthma presenting s/p left knee replacement complicated by left leg DVT and hematoma of left knee [place] [facility] [place] and management of DVT on eliquis. Plan: S/P I&D Left Knee S/P left knee athroplasty -Continue with Vancomycin for 6 more days as per ortho vanc order -Dilaudid, oxycodone, lyrica, tylenol for pain -anaerobic culture, body fluid culture, culture fungus, mycobac; results negative thus far -PT/OT -Continue with incesitve spirometry -afebrile for more than 24 hours Asthma Hx -Continue with duonebs, breo-ellipta, ventolin, singulair Left leg DVT -Eliquis 10 mg BID for 1 more days then 5 mg BID -Hypercoaguable workup: Beta 2 glycoprotein, Phosphatidylserine, Factor V leiden and Anticardiolipin done at other facility; Will also add PT,PTT, protein C and S, antithrombin III, prothombrin, Factor VIII, homocysteine (normal); results pending DVT/GI ppx: Eliquis/Protonix <Cehco Thomas - Last Filed: 05/15/18 13:39> Objective - Vital Signs/Intake and Output Vital Signs (last 24 hours): Temp Pulse Resp BP Pulse Ox 98.5 F 90 20 103/72 99 05/15/18 07:00 05/15/18 07:00 05/15/18 07:00 05/15/18 07:00 05/15/18 07:00 Intake and Output: 05/15/18 05/15/18 06:59 18:59 Intake Total 620 Output Total 650 Balance -30 - Medications Medications: Current Medications Acetaminophen (Tylenol 325mg Tab) 650 mg PO Q6 PRN PRN Reason: Fever =>101 degrees fahrenheit Last Admin: 05/13/18 21:23 Dose: 650 mg Albuterol/Ipratropium (Duoneb 3 Mg/0.5 Mg (3 Ml) Ud) 3 ml INH [id number] [facility] Last Admin: 05/15/18 07:45 Dose: Not Given Apixaban (Eliquis) 10 mg PO BID [facility]; Protocol Stop: 05/20/18 10:01 Last Admin: 05/15/18 10:03 Dose: 10 mg Docusate Sodium (Colace) 100 mg PO BID [facility] Last Admin: 05/15/18 10:03 Dose: 100 mg Ergocalciferol (Drisdol 50,000 Intl Units Cap) 1 cap PO QWK [facility] Last Admin: 05/13/18 13:37 Dose: 1 cap Hydromorphone HCl (Dilaudid) 1 mg IVP Q4H PRN PRN Reason: Pain, severe (8-10) Last Admin: 05/14/18 09:43 Dose: 1 mg Vancomycin HCl 1.5 gm/ Sodium (Chloride) 500 mls @ 167 mls/hr IVPB Q12H [facility]; Protocol Last Admin: 05/15/18 11:50 Dose: 167 mls/hr Magnesium Hydroxide (Milk Of Magnesia) 30 ml PO HS PRN PRN Reason: Constipation Montelukast Sodium (Singulair) 10 mg PO DAILY [facility] Last Admin: 05/15/18 10:03 Dose: 10 mg Multivitamins/Minerals (Therapeutic-M Tab) 1 tab PO DAILY [facility] Last Admin: 05/15/18 10:03 Dose: 1 tab Non-Formulary Medication (Fluticasone/Vilanterol 100/25 [Breo Ellipta 100-25 Mcg Inh]) 1 puff INH DAILY [facility] Last Admin: 05/15/18 10:04 Dose: Not Given Oxycodone HCl (Oxycodone Immediate Release Tab) 10 mg PO Q4H PRN PRN Reason: Pain, moderate (4-7) Last Admin: 05/15/18 02:07 Dose: 10 mg Pantoprazole Sodium (Protonix Ec Tab) 40 mg PO DAILY [facility] Last Admin: 05/15/18 10:03 Dose: 40 mg Pregabalin (Lyrica) 50 mg PO BID [facility] Last Admin: 05/15/18 10:03 Dose: 50 mg Sennosides (Senokot Tab) 17.2 mg PO HS PRN PRN Reason: Constipation - Labs Labs: 05/15/18 08:30 05/15/18 08:30 Attending/Attestation - Attestation I have personally seen and examined this patient.: Yes I have fully participated in the care of the patient.: Yes I have reviewed all pertinent clinical information, including history, physical exam and plan: Yes Notes (Text): 05/15/18 13:35 Medical record note made by the resident after discussion with my direction and input after the patient was personally seen and examined by me. I have reviewed the chart and agree that the record accurately reflects by personal performance of the history, physical exam, data review, and medical decision-making, in the course for the patient. I have also personally directed the plan of care. 62 M with past medical history of rheumatic fever, CAD, asthma presenting s/p left knee replacement complicated by left leg DVT(Left Popliteal and Peroneal Vein) and hematoma of left knee [place] [facility] [place].Patient is SP ID of hematoma , wound cultures are negative.Patient is afebrile. Patient is on IV Vancomycin , can be discontined as synovial fluid studies are negative for septic joint and cultures are negative. Leg pain is improving. Patient hemoglobin is stable. Management plan was discussed in detail with patient. Education was provided.
[2018-05-15] MEDS: Vancomycin 1.5 GM in Sodium Chloride 0.9% 500 ML IVPB SCH ×2 (11:50→22:05)
[2018-05-15] MEDS: HYDROmorphone 1 mg/ml ISec IVP PRN ×2 (13:46→23:30)
[2018-05-16] MEDS: Albuterol-Ipratrop 3 mg / 0.5 (3 ml) UD INH SCH ×4 (01:13→20:24)
[2018-05-16] MEDS: HYDROmorphone 1 mg/ml ISec IVP PRN ×2 (05:43→14:51)
[2018-05-16 07:15] LABS: BASO # 0.05 K/mm3 (0.0-2.0); BASO % 0.4 % (0.0-3.0); EOS # 0.4 (0.0-0.7); EOS % 3.7 % (1.5-5.0); GRAN # 8.33 (1.4-6.5); GRAN % 69.9 % (50.0-68.0); HEMOGLOBIN 9.6 g/dL (14.0-18.0); LYMPH # 2.2 (1.2-3.4); LYMPH % 18.4 % (22.0-35.0); MEAN CELL VOLUME 84.8 fl (80.0-105.0); MEAN CORPUSCULAR HGB CONC 31.8 g/dl (31.0-37.0); MEAN PLATELET VOLUME 8.5 fl (7.0-11.0); MONO # 0.9 (0.1-0.6); MONO % 7.6 % (1.0-6.0); RBC 3.56 10^6/uL (3.5-6.1); RED CELL DISTRIBUTION WIDTH 13.3 % (11.5-14.5); WHITE BLOOD COUNT 11.9 10^3/uL (4.5-11.0)
[2018-05-16 07:25] LABS: BLOOD UREA NITROGEN 13 mg/dL (7-21); CALCIUM 8.8 mg/dL (8.4-10.5); GFR NON-AFRICAN AMERICAN > 60
[2018-05-16] MEDS: Pantoprazole 40 mg EC Tab PO SCH (09:49)
[2018-05-16] MEDS: Multivitamin With Minerals Tab PO SCH (09:49)
[2018-05-16] MEDS: Vancomycin 1.5 GM in Sodium Chloride 0.9% 500 ML IVPB SCH ×3 (09:50→23:01)
[2018-05-16] MEDS: Ergocalciferol 50,000 Intl Units Cap PO SCH (09:50)
[2018-05-16] MEDS: Non Formulary Medication (Fluticasone/Vilanterol 100/25 [Breo Ellipta 100-25 Mcg Inh] 1 PU INH SCH (10:04)
--- NOTE | 2018-05-16 11:52 | CP.PCM.PN ---
Subjective - Date & Time of Evaluation Date of Evaluation: 05/16/18 Time of Evaluation: 08:33 - Subjective Subjective: Patient seen and examined. Denies any significant pain, CP or SOB. Patient has been afebrile WBC 11.9 Hgb 9.6 L knee: dressings and PICCO removed. Incision clean dry and intact with sutures in place. No drainage or erythema. Ecchymosis noted about the knee with mild to moderate swelling. No areas of tenderness to palpation. Incision cleaned and new light dry dressings applied with webril and roderick. Thigh and calf are soft and nontender. Grossly NVI distally POD# 3 s/p evacuation hematoma/I&D Cont Eliquis Cont PT Cont Abx Cont monitor temp and labs Discharge planning to [facility] today Discussed above with Dr. Jaquez, agrees with above Objective - Vital Signs/Intake and Output Vital Signs (last 24 hours): Temp Pulse Resp BP Pulse Ox 98.5 F 95 H 20 117/75 97 05/16/18 06:00 05/16/18 06:00 05/16/18 06:00 05/16/18 06:00 05/16/18 06:00 Intake and Output: 05/16/18 05/16/18 06:59 18:59 Intake Total 1120 480 Output Total 250 1100 Balance 870 -620 - Medications Medications: Current Medications Acetaminophen (Tylenol 325mg Tab) 650 mg PO Q6 PRN PRN Reason: Fever =>101 degrees fahrenheit Last Admin: 05/13/18 21:23 Dose: 650 mg Albuterol/Ipratropium (Duoneb 3 Mg/0.5 Mg (3 Ml) Ud) 3 ml INH [id number] [facility] Last Admin: 05/16/18 07:57 Dose: Not Given Apixaban (Eliquis) 10 mg PO BID [facility]; Protocol Stop: 05/20/18 10:01 Last Admin: 05/15/18 18:18 Dose: 10 mg Docusate Sodium (Colace) 100 mg PO BID [facility] Last Admin: 05/15/18 18:19 Dose: 100 mg Ergocalciferol (Drisdol 50,000 Intl Units Cap) 1 cap PO QWK [facility] Last Admin: 05/13/18 13:37 Dose: 1 cap Hydromorphone HCl (Dilaudid) 1 mg IVP Q4H PRN PRN Reason: Pain, severe (8-10) Last Admin: 05/16/18 05:43 Dose: 1 mg Vancomycin HCl 1.5 gm/ Sodium (Chloride) 500 mls @ 167 mls/hr IVPB Q12H [facility]; Protocol Last Admin: 05/15/18 22:05 Dose: 167 mls/hr Magnesium Hydroxide (Milk Of Magnesia) 30 ml PO HS PRN PRN Reason: Constipation Montelukast Sodium (Singulair) 10 mg PO DAILY [facility] Last Admin: 05/15/18 10:03 Dose: 10 mg Multivitamins/Minerals (Therapeutic-M Tab) 1 tab PO DAILY [facility] Last Admin: 05/15/18 10:03 Dose: 1 tab Non-Formulary Medication (Fluticasone/Vilanterol 100/25 [Breo Ellipta 100-25 Mcg Inh]) 1 puff INH DAILY [facility] Last Admin: 05/15/18 10:04 Dose: Not Given Oxycodone HCl (Oxycodone Immediate Release Tab) 10 mg PO Q4H PRN PRN Reason: Pain, moderate (4-7) Last Admin: 05/15/18 18:17 Dose: 10 mg Pantoprazole Sodium (Protonix Ec Tab) 40 mg PO DAILY [facility] Last Admin: 05/15/18 10:03 Dose: 40 mg Pregabalin (Lyrica) 50 mg PO BID [facility] Last Admin: 05/15/18 18:18 Dose: 50 mg Sennosides (Senokot Tab) 17.2 mg PO HS PRN PRN Reason: Constipation - Labs Labs: 05/16/18 07:00 05/16/18 07:00
[2018-05-16] MEDS ORDERED: Influenza Vaccine 60 mcg/0.5 mL SYR (4YR UP) IM ONE (13:55)
--- NOTE | 2018-05-16 14:58 | CP.PCM.DIS ---
<Gisel Pierre - Last Filed: 05/16/18 14:53> Provider - Provider Attending physician: Cyril Jaquez MD Consults: Physician Consult Routine Comment: Consulting Provider: Daily Henry Consulting Physician: Daily Henry Reason for Consult: post op medical mgmt, recent DVT Time Spent in preparation of Discharge (in minutes): 35 Hospital Course - Lab Results Lab Results: Micro Results 05/13/18 08:43 Other: Please Indicate Gram Stain - Final 05/13/18 08:43 Other: Please Indicate Anaerobic Culture - Final NO ANAEROBES ISOLATED. 05/13/18 08:43 Other: Please Indicate Body Fluid Culture - Preliminary NO GROWTH AFTER 3 DAYS 05/13/18 08:53 Other: Please Indicate Mycobacterial Culture - Preliminary Most Recent Lab Values WBC 11.9 10^3/uL (4.5-11.0) H 05/16/18 07:00 RBC 3.56 10^6/uL (3.5-6.1) 05/16/18 07:00 Hgb 9.6 g/dL (14.0-18.0) L 05/16/18 07:00 Hct 30.2 % (42.0-52.0) L 05/16/18 07:00 MCV 84.8 fl (80.0-105.0) 05/16/18 07:00 MCH 27.0 pg (25.0-35.0) 05/16/18 07:00 MCHC 31.8 g/dl (31.0-37.0) 05/16/18 07:00 RDW 13.3 % (11.5-14.5) 05/16/18 07:00 Plt Count 518 10^3/uL (120.0-450.0) H 05/16/18 07:00 MPV 8.5 fl (7.0-11.0) 05/16/18 07:00 Gran % 69.9 % (50.0-68.0) H 05/16/18 07:00 Lymph % (Auto) 18.4 % (22.0-35.0) L 05/16/18 07:00 Crowley % (Auto) 7.6 % (1.0-6.0) H 05/16/18 07:00 Eos % (Auto) 3.7 % (1.5-5.0) 05/16/18 07:00 Baso % (Auto) 0.4 % (0.0-3.0) 05/16/18 07:00 Gran # 8.33 (1.4-6.5) H 05/16/18 07:00 Lymph # (Auto) 2.2 (1.2-3.4) 05/16/18 07:00 Crowley # (Auto) 0.9 (0.1-0.6) H 05/16/18 07:00 Eos # (Auto) 0.4 (0.0-0.7) 05/16/18 07:00 Baso # (Auto) 0.05 K/mm3 (0.0-2.0) 05/16/18 07:00 Sodium 136 mmol/L (132-148) 05/16/18 07:00 Potassium 4.6 mmol/L (3.6-5.0) 05/16/18 07:00 Chloride 101 mmol/L (98-107) 05/16/18 07:00 Carbon Dioxide 31 mmol/L (21-33) 05/16/18 07:00 Anion Gap 9 (10-20) L 05/16/18 07:00 BUN 13 mg/dL (7-21) 05/16/18 07:00 Creatinine 0.7 mg/dl (0.8-1.5) L 05/16/18 07:00 Est GFR ( Amer) > 60 05/16/18 07:00 Est GFR (Non-Af Amer) > 60 05/16/18 07:00 Random Glucose 106 mg/dL (70-110) 05/16/18 07:00 Calcium 8.8 mg/dL (8.4-10.5) 05/16/18 07:00 Total Bilirubin 0.5 mg/dL (0.2-1.3) 05/15/18 08:30 AST 72 U/L (17-59) H 05/15/18 08:30 ALT 81 U/L (7-56) H 05/15/18 08:30 Alkaline Phosphatase 137 U/L (38-126) H 05/15/18 08:30 Total Protein 7.0 g/dL (5.8-8.3) 05/15/18 08:30 Albumin 3.2 g/dL (3.0-4.8) 05/15/18 08:30 Globulin 3.9 gm/dL 05/15/18 08:30 Albumin/Globulin Ratio 0.8 (1.1-1.8) L 05/15/18 08:30 Homocysteine Cancelled 05/14/18 06:00 Homocysteine Cardiovas 8.3 umol/L ( <11.4) 05/14/18 05:00 Fluid Type Synovial fluid 05/13/18 09:00 Synovial WBC 6105.0 /uL (0.0-150.0) H 05/13/18 09:00 Synovial RBC 6969262.0 /uL (0.0-0.0) H 05/13/18 09:00 Synovial Mononuclear 6.0 % (0-0) H 05/13/18 09:00 Synov Polymorphonuclear 94.0 % (0-0) H 05/13/18 09:00 Synovial Fluid Comment Red 05/13/18 09:00 Blood Type B POSITIVE 05/13/18 06:50 Antibody Screen Negative 05/13/18 06:50 BBK History Checked Patient has bt 05/13/18 06:50 - Hospital Course Hospital Course: 62 M with past medical history of rheumatic fever, CAD, asthma presenting s/p left knee replacement complicated by left leg DVT and hematoma of left knee presenting to [facility] for I&D of hematoma and management of DVT on eliquis. Patient denies pain, fevers, chills, nausea, vomiting, diarrhea, chest pain, shortness of breath, headache. During hospital course, patient was given dilaudid, oxycodone, lyrica, tylenol for pain. Anaerobic culture, body fluid culture, culture fungus, mycobac workup was negative. Patient was started on vancomycin for empiric coverage of wound. He was also given eliquis for his history of left leg DVT. Hypercoaguable workup including Beta 2 glycoprotein, Phosphatidylserine, Factor V leiden and A nticardiolipin was done recently at [place] [facility] facility; Will also add PT,PTT, protein C and S, antithrombin III, prothombrin, Factor VIII, homocysteine (normal). Per ortho, patient is stable for transfer to [facility]. Patient will be continued on 5 more days of vancomycin. Patient will be tapered from 10mg BID eliquis to 5mg eliquis BID tomorrow (05/17/18). Discharge Exam - Head Exam Head Exam: ATRAUMATIC, NORMAL INSPECTION, NORMOCEPHALIC Discharge Plan - Follow Up Plan Condition: STABLE Disposition: TRANSF TO SNF Instructions: High Blood Pressure in Adults, Surgical Wound (DC), Wound Infection Additional Instructions: You are being discharged to [facility]. Please follow up with your Orthopedic Surgeon within one week of discharge, Dr. Santillan. Please take vancomycin (antibiotic) for 5 more days. Please check your vancomycin level (vancomycin trough level) tomorrow (05/17/18). Please take eliquis 10mg BID today (05/16/18) and from tomorrow (05/17/18), you will take eliquis 5mg BID. Please follow up with your primary care doctor within 5-7 days of discharge, Dr. Low. Please return to the ED for any new or worsening symptoms. Referrals: Cyril Jaquez MD [Staff Provider] - Ike Low MD [Primary Care Provider] - <Checo Thomas - Last Filed: 05/18/18 14:59> Provider - Provider Date of Admission: 05/14/18 09:30 Attending physician: Cyril Jaquez MD Primary care physician: Ike Low MD Consults: 05/13/18 09:43 Case Management Referral Routine Comment: Physician Instructions: Reason For Exam: Reason for Referral: Discharge Planning 05/13/18 09:54 Physician Consult Routine Comment: Consulting Provider: Daily Henry Consulting Physician: Daily Henry Reason for Consult: post op medical mgmt, recent DVT Hospital Course - Lab Results Lab Results: Micro Results 05/13/18 08:43 Other: Please Indicate Gram Stain - Final 05/13/18 08:43 Other: Please Indicate Anaerobic Culture - Final NO ANAEROBES ISOLATED. 05/13/18 08:43 Other: Please Indicate Body Fluid Culture - Final No growth. 05/13/18 08:53 Other: Please Indicate Mycobacterial Culture - Preliminary Most Recent Lab Values WBC 10.1 10^3/uL (4.5-11.0) 05/17/18 06:20 RBC 3.55 10^6/uL (3.5-6.1) 05/17/18 06:20 Hgb 9.6 g/dL (14.0-18.0) L 05/17/18 06:20 Hct 30.1 % (42.0-52.0) L 05/17/18 06:20 MCV 84.8 fl (80.0-105.0) 05/17/18 06:20 MCH 27.0 pg (25.0-35.0) 05/17/18 06:20 MCHC 31.9 g/dl (31.0-37.0) 05/17/18 06:20 RDW 13.4 % (11.5-14.5) 05/17/18 06:20 Plt Count 523 10^3/uL (120.0-450.0) H 05/17/18 06:20 MPV 8.5 fl (7.0-11.0) 05/17/18 06:20 Gran % 66.4 % (50.0-68.0) 05/17/18 06:20 Lymph % (Auto) 21.3 % (22.0-35.0) L 05/17/18 06:20 Crowley % (Auto) 8.1 % (1.0-6.0) H 05/17/18 06:20 Eos % (Auto) 3.7 % (1.5-5.0) 05/17/18 06:20 Baso % (Auto) 0.5 % (0.0-3.0) 05/17/18 06:20 Gran # 6.72 (1.4-6.5) H 05/17/18 06:20 Lymph # (Auto) 2.2 (1.2-3.4) 05/17/18 06:20 Crowley # (Auto) 0.8 (0.1-0.6) H 05/17/18 06:20 Eos # (Auto) 0.4 (0.0-0.7) 05/17/18 06:20 Baso # (Auto) 0.05 K/mm3 (0.0-2.0) 05/17/18 06:20 Protein C Antigen 80 % (70-140) 05/14/18 06:00 Protein C Activity 126 % (70-180) 05/14/18 05:00 Protein S Activity 62 % (70-150) L 05/14/18 06:00 Protein S Antigen 98 % (70-140) 05/14/18 06:00 Antithrombin III Ag 85 % (80-120) 05/14/18 05:00 Antithrombin III Activ 109 % activity (80-120) 05/14/18 05:00 Factor VIII Activity 147 % (50-180) 05/14/18 06:00 Sodium 135 mmol/L (132-148) 05/17/18 06:20 Potassium 4.2 mmol/L (3.6-5.0) 05/17/18 06:20 Chloride 101 mmol/L (98-107) 05/17/18 06:20 Carbon Dioxide 31 mmol/L (21-33) 05/17/18 06:20 Anion Gap 7 (10-20) L 05/17/18 06:20 BUN 13 mg/dL (7-21) 05/17/18 06:20 Creatinine 0.7 mg/dl (0.8-1.5) L 05/17/18 06:20 Est GFR ( Amer) > 60 05/17/18 06:20 Est GFR (Non-Af Amer) > 60 05/17/18 06:20 Random Glucose 113 mg/dL (70-110) H 05/17/18 06:20 Calcium 8.7 mg/dL (8.4-10.5) 05/17/18 06:20 Total Bilirubin 0.5 mg/dL (0.2-1.3) 05/15/18 08:30 AST 72 U/L (17-59) H 05/15/18 08:30 ALT 81 U/L (7-56) H 05/15/18 08:30 Alkaline Phosphatase 137 U/L (38-126) H 05/15/18 08:30 Total Protein 7.0 g/dL (5.8-8.3) 05/15/18 08:30 Albumin 3.2 g/dL (3.0-4.8) 05/15/18 08:30 Globulin 3.9 gm/dL 05/15/18 08:30 Albumin/Globulin Ratio 0.8 (1.1-1.8) L 05/15/18 08:30 Lipoprotein (a) 134.4 nmol/L (<75.0) H 05/14/18 05:00 Homocysteine Cancelled 05/14/18 06:00 Homocysteine Cardiovas 8.3 umol/L ( <11.4) 05/14/18 05:00 Fluid Type Synovial fluid 05/13/18 09:00 Synovial WBC 6105.0 /uL (0.0-150.0) H 05/13/18 09:00 Synovial RBC 6252649.0 /uL (0.0-0.0) H 05/13/18 09:00 Synovial Mononuclear 6.0 % (0-0) H 05/13/18 09:00 Synov Polymorphonuclear 94.0 % (0-0) H 05/13/18 09:00 Synovial Fluid Comment Red 05/13/18 09:00 Vancomycin Trough 18.8 ug/mL (5.0-10.0) H* 05/17/18 07:57 Blood Type B POSITIVE 05/13/18 06:50 Antibody Screen Negative 05/13/18 06:50 BBK History Checked Patient has bt 05/13/18 06:50 Attending/Attestation - Attestation I have personally seen and examined this patient.: Yes I have fully participated in the care of the patient.: Yes I have reviewed all pertinent clinical information, including history, physical exam and plan: Yes Notes (Text): 05/18/18 14:50 Medical record note made by the resident after discussion with my direction and input after the patient was personally seen and examined by me. I have reviewed the chart and agree that the record accurately reflects by personal performance of the history, physical exam, data review, and medical decision-making, in the course for the patient. I have also personally directed the plan of care. 62 M with past medical history of rheumatic fever, CAD, asthma presenting s/p left knee replacement complicated by left leg DVT(Left Popliteal and Peroneal Vein) and hematoma of left knee presenting to [facility] for I&D of hematoma.Patient is SP ID of hematoma , wound cultures are negative.Patient is afebrile. Patient is on IV Vancomycin for 5 mores days as per Orthopedic. Patient hemoglobin is stable. Continue Apixiban 5 mg PO BID for DVT Patient will be discharged to Rehab Management plan was discussed in detail with patient. Education was provided.
[2018-05-16] MEDS: oxyCODONE 10 mg Immediate Release Tab PO PRN (19:49)
[2018-05-17] MEDS: Albuterol-Ipratrop 3 mg / 0.5 (3 ml) UD INH SCH ×3 (01:21→13:21)
[2018-05-17] MEDS: oxyCODONE 10 mg Immediate Release Tab PO PRN ×3 (05:53→16:08)
[2018-05-17 06:52] LABS: BASO # 0.05 K/mm3 (0.0-2.0); BASO % 0.5 % (0.0-3.0); EOS # 0.4 (0.0-0.7); EOS % 3.7 % (1.5-5.0); GRAN # 6.72 (1.4-6.5); GRAN % 66.4 % (50.0-68.0); HEMOGLOBIN 9.6 g/dL (14.0-18.0); LYMPH # 2.2 (1.2-3.4); LYMPH % 21.3 % (22.0-35.0); MEAN CELL VOLUME 84.8 fl (80.0-105.0); MEAN CORPUSCULAR HGB CONC 31.9 g/dl (31.0-37.0); MEAN PLATELET VOLUME 8.5 fl (7.0-11.0); MONO # 0.8 (0.1-0.6); MONO % 8.1 % (1.0-6.0); RBC 3.55 10^6/uL (3.5-6.1); RED CELL DISTRIBUTION WIDTH 13.4 % (11.5-14.5); WHITE BLOOD COUNT 10.1 10^3/uL (4.5-11.0)
[2018-05-17 07:30] LABS: BLOOD UREA NITROGEN 13 mg/dL (7-21); CALCIUM 8.7 mg/dL (8.4-10.5); GFR NON-AFRICAN AMERICAN > 60
[2018-05-17 08:09] VITALS: RESP 18; O2SAT 98
--- NOTE | 2018-05-17 10:38 | CP.PCM.PN ---
Subjective - Date & Time of Evaluation Date of Evaluation: 05/17/18 Time of Evaluation: 10:38 - Subjective Subjective: Pt awake, alert. Feels better. Less pain. Afebrile, VSS L knee: dressing changed no drainage incision appears clean and dry no cellulitis mild/mod swelling WBC 10.1 Pt stable to go to rehab d/c immobilizer Objective - Vital Signs/Intake and Output Vital Signs (last 24 hours): Temp Pulse Resp BP Pulse Ox 98.7 F 92 H 18 116/78 98 05/17/18 08:08 05/17/18 08:08 05/17/18 08:08 05/17/18 08:08 05/17/18 08:08 Intake and Output: 05/17/18 05/17/18 06:59 18:59 Intake Total 180 Output Total 800 Balance -620 - Medications Medications: Current Medications Acetaminophen (Tylenol 325mg Tab) 650 mg PO Q6 PRN PRN Reason: Fever =>101 degrees fahrenheit Last Admin: 05/13/18 21:23 Dose: 650 mg Albuterol/Ipratropium (Duoneb 3 Mg/0.5 Mg (3 Ml) Ud) 3 ml INH [id number] [facility] Last Admin: 05/17/18 07:32 Dose: Not Given Apixaban (Eliquis) 10 mg PO BID [facility]; Protocol Stop: 05/20/18 10:01 Last Admin: 05/16/18 17:22 Dose: 10 mg Docusate Sodium (Colace) 100 mg PO BID [facility] Last Admin: 05/16/18 17:22 Dose: 100 mg Ergocalciferol (Drisdol 50,000 Intl Units Cap) 1 cap PO QWK [facility] Last Admin: 05/16/18 09:50 Dose: 1 cap Hydromorphone HCl (Dilaudid) 1 mg IVP Q4H PRN PRN Reason: Pain, severe (8-10) Last Admin: 05/16/18 14:51 Dose: 1 mg Vancomycin HCl 1.5 gm/ Sodium (Chloride) 500 mls @ 167 mls/hr IVPB Q12H [facility]; Protocol Last Admin: 05/16/18 23:01 Dose: 167 mls/hr Magnesium Hydroxide (Milk Of Magnesia) 30 ml PO HS PRN PRN Reason: Constipation Montelukast Sodium (Singulair) 10 mg PO DAILY [facility] Last Admin: 05/16/18 09:49 Dose: 10 mg Multivitamins/Minerals (Therapeutic-M Tab) 1 tab PO DAILY [facility] Last Admin: 05/16/18 09:49 Dose: 1 tab Non-Formulary Medication (Fluticasone/Vilanterol 100/25 [Breo Ellipta 100-25 Mcg Inh]) 1 puff INH DAILY [facility] Last Admin: 05/16/18 10:04 Dose: Not Given Oxycodone HCl (Oxycodone Immediate Release Tab) 10 mg PO Q4H PRN PRN Reason: Pain, moderate (4-7) Last Admin: 05/17/18 05:53 Dose: 10 mg Pantoprazole Sodium (Protonix Ec Tab) 40 mg PO DAILY [facility] Last Admin: 05/16/18 09:49 Dose: 40 mg Pregabalin (Lyrica) 50 mg PO BID [facility] Last Admin: 05/16/18 17:22 Dose: 50 mg Sennosides (Senokot Tab) 17.2 mg PO HS PRN PRN Reason: Constipation - Labs Labs: 05/17/18 06:20 05/17/18 06:20
[2018-05-17] MEDS: Vancomycin 1.5 GM in Sodium Chloride 0.9% 500 ML IVPB SCH (11:02)
[2018-05-17] MEDS: Non Formulary Medication (Fluticasone/Vilanterol 100/25 [Breo Ellipta 100-25 Mcg Inh] 1 PU INH SCH (11:02)
[2018-05-17] MEDS: Multivitamin With Minerals Tab PO SCH (11:02)
[2018-05-17] MEDS: Pantoprazole 40 mg EC Tab PO SCH (11:02)
--- NOTE | 2018-05-17 15:45 | CP.PCM.PN ---
<Gisel Pierre - Last Filed: 05/17/18 15:39> Subjective - Date & Time of Evaluation Date of Evaluation: 05/17/18 Time of Evaluation: 11:01 - Subjective Subjective: Gisel Pierre PGY1 Hospital Progress Note Patient seen and examined at bedside this morning. No acute events overnight. Patient offers no complaints at this time. Plan for discharge today. Objective - Vital Signs/Intake and Output Vital Signs (last 24 hours): Temp Pulse Resp BP Pulse Ox 98.7 F 92 H 18 116/78 98 05/17/18 08:08 05/17/18 08:08 05/17/18 08:08 05/17/18 08:08 05/17/18 08:08 Intake and Output: 05/17/18 05/17/18 06:59 18:59 Intake Total 180 Output Total 800 Balance -620 - Medications Medications: Current Medications Acetaminophen (Tylenol 325mg Tab) 650 mg PO Q6 PRN PRN Reason: Fever =>101 degrees fahrenheit Last Admin: 05/13/18 21:23 Dose: 650 mg Albuterol/Ipratropium (Duoneb 3 Mg/0.5 Mg (3 Ml) Ud) 3 ml INH [id number] [facility] Last Admin: 05/17/18 13:21 Dose: Not Given Apixaban (Eliquis) 10 mg PO BID [facility]; Protocol Stop: 05/20/18 10:01 Last Admin: 05/17/18 11:01 Dose: 10 mg Docusate Sodium (Colace) 100 mg PO BID [facility] Last Admin: 05/17/18 11:01 Dose: 100 mg Ergocalciferol (Drisdol 50,000 Intl Units Cap) 1 cap PO QWK [facility] Last Admin: 05/16/18 09:50 Dose: 1 cap Hydromorphone HCl (Dilaudid) 1 mg IVP Q4H PRN PRN Reason: Pain, severe (8-10) Last Admin: 05/16/18 14:51 Dose: 1 mg Vancomycin HCl 1.5 gm/ Sodium (Chloride) 500 mls @ 167 mls/hr IVPB Q12H [facility]; Protocol Last Admin: 05/17/18 11:02 Dose: 167 mls/hr Magnesium Hydroxide (Milk Of Magnesia) 30 ml PO HS PRN PRN Reason: Constipation Montelukast Sodium (Singulair) 10 mg PO DAILY [facility] Last Admin: 05/17/18 11:02 Dose: 10 mg Multivitamins/Minerals (Therapeutic-M Tab) 1 tab PO DAILY [facility] Last Admin: 05/17/18 11:02 Dose: 1 tab Non-Formulary Medication (Fluticasone/Vilanterol 100/25 [Breo Ellipta 100-25 Mcg Inh]) 1 puff INH DAILY [facility] Last Admin: 05/17/18 11:02 Dose: Not Given Oxycodone HCl (Oxycodone Immediate Release Tab) 10 mg PO Q4H PRN PRN Reason: Pain, moderate (4-7) Last Admin: 05/17/18 12:13 Dose: 10 mg Pantoprazole Sodium (Protonix Ec Tab) 40 mg PO DAILY [facility] Last Admin: 05/17/18 11:02 Dose: 40 mg Pregabalin (Lyrica) 50 mg PO BID [facility] Last Admin: 05/17/18 11:05 Dose: 50 mg Sennosides (Senokot Tab) 17.2 mg PO HS PRN PRN Reason: Constipation - Labs Labs: 05/17/18 06:20 05/17/18 06:20 - Additional Findings Additional findings: - Constitutional Appears: Non-toxic, No Acute Distress - Head Exam Head Exam: ATRAUMATIC, NORMAL INSPECTION, NORMOCEPHALIC - Eye Exam Eye Exam: EOMI, Normal appearance - ENT Exam ENT Exam: Mucous Membranes Moist - Neck Exam Neck Exam: Normal Inspection - Respiratory Exam Respiratory Exam: Clear to Ausculation Bilateral, NORMAL BREATHING PATTERN. absent: Rhonchi, Wheezes - Cardiovascular Exam Cardiovascular Exam: REGULAR RHYTHM, +S1, +S2 - GI/Abdominal Exam GI & Abdominal Exam: Soft, Normal Bowel Sounds - Extremities Exam Extremities Exam: Normal Inspection Left knee dressing place - Back Exam Back Exam: NORMAL INSPECTION - Neurological Exam Neurological Exam: Alert, Awake, Oriented x3 - Psychiatric Exam Psychiatric exam: Normal Affect, Normal Mood - Skin Skin Exam: Normal Color, Warm Assessment and Plan - Assessment and Plan (Free Text) Assessment: 62 M with past medical history of rheumatic fever, CAD, asthma presenting s/p left knee replacement complicated by left leg DVT and hematoma of left knee presenting to [facility] for I&D of hematoma and management of DVT on eliquis. Plan: Left Knee s/p left knee athroplasty s/p I&D -plan for discharge to [place] [facility] today -Continue with Vancomycin for 5 more days -for pain, dilaudid, oxycodone, lyrica, tylenol -anaerobic culture, body fluid culture, culture fungus, mycobacterium are negati ve -Continue with incesitve spirometry -afebrile for more than 24 hours Asthma Hx -Continue with duonebs, breo-ellipta, ventolin, singulair Left leg DVT -Eliquis 5mg BID -Hypercoaguable workup is unremarkable thus far PPX -Eliquis, protonix Patient seen and case discussed with attending, Dr. Thomas <Checo Thomas - Last Filed: 05/18/18 14:49> Objective - Vital Signs/Intake and Output Vital Signs (last 24 hours): Temp Pulse Resp BP Pulse Ox 97.6 F 88 18 100/60 98 05/17/18 14:00 05/17/18 14:00 05/17/18 14:00 05/17/18 14:00 05/17/18 14:00 - Labs Labs: 05/17/18 06:20 05/17/18 06:20 Attending/Attestation - Attestation I have personally seen and examined this patient.: Yes I have fully participated in the care of the patient.: Yes I have reviewed all pertinent clinical information, including history, physical exam and plan: Yes Notes (Text): 05/18/18 14:48 Medical record note made by the resident after discussion with my direction and input after the patient was personally seen and examined by me. I have reviewed the chart and agree that the record accurately reflects by personal performance of the history, physical exam, data review, and medical decision-making, in the course for the patient. I have also personally directed the plan of care. 62 M with past medical history of rheumatic fever, CAD, asthma presenting s/p left knee replacement complicated by left leg DVT(Left Popliteal and Peroneal Vein) and hematoma of left knee presenting to [facility] for I&D of hematoma.Patient is SP ID of hematoma , wound cultures are negative.Patient is afebrile. Patient is on IV Vancomycin for 5 mores days as per Orthopedic. Patient hemoglobin is stable. Patient will be discharged to Rehab Management plan was discussed in detail with patient. Education was provided.
[2018-05-17 16:11] VITALS: BP 100/60; PULSE 88; TEMP 97.6
== END 2018-05-17 17:00 | DRG 920 ==
LOC: ED 06:07 → SDS 07:51 → 5RSO 12:48 → SDS 05-14 09:30 → 5RSO 05-14 09:30
PROVIDERS: ADMIT Orthopaedic Surgery; ATTEND Orthopaedic Surgery
PROC: 0S9D3ZZ Drainage of Left Knee Joint, Percutaneous Approach (ICD-10-PCS; principal; 2018-05-13 07:30)
PROC: 3E1038Z Irrigation of Skin and Mucous Membranes using Irrigating Substance, Percutaneous Approach (ICD-10-PCS; 2018-05-13 07:30)
DX: M96.840 Postprocedural hematoma of a musculoskeletal structure following a musculoskeletal system procedure (principal); M25.062 Hemarthrosis, left knee; I25.10 Atherosclerotic heart disease of native coronary artery without angina pectoris; J44.9 Chronic obstructive pulmonary disease, unspecified; Y83.1 Surgical operation with implant of artificial internal device as the cause of abnormal reaction of the patient, or of later complication, without mention of misadventure at the time of the procedure; Z86.718 Personal history of other venous thrombosis and embolism; Z88.0 Allergy status to penicillin